=== PATIENT | male | born 1965 | race American Indian/Alaskan Native ===

== ENCOUNTER 2021-06-26 08:15 | Observation (INO) | payer OTHER ==
[2021-06-22 10:05] LABS: Hematocrit 42.5 % (35.5-45.6); Hemoglobin 14.7 gm/dl (11.8-15.2); Mean Corpuscular HGB Conc 35 % (32-34); Mean Corpuscular Volume 79 fl (84-94); Platelet Count 174 K/mm3 (140-440); Red Blood Count 5.37 M/mm3 (3.65-5.03); Red Cell Distribution Width 14.4 % (13.2-15.2)
[2021-06-22 10:10] LABS: Alanine Aminotransferase 28 units/L (7-56); Albumin 4.8 g/dL (3.9-5); BUN/Creatinine Ratio 13; Blood Urea Nitrogen 14 mg/dL (9-20); Hemolysis Index 3
[2021-06-26] MEDS ORDERED: LACTATED RINGERS 1,000 ML ONE ×2 (08:36→13:36)
[2021-06-26] MEDS: LACTATED RINGERS 1,000 ML IV SCH ×2 (09:15→20:38)
--- NOTE | 2021-06-26 09:30 | Anesthesia Day of Surgery ---
Anesthesia Day of Surgery - Day of Surgery Patient Examined: Yes Patient H&P Reviewed: Yes Patient is NPO: Yes
--- NOTE | 2021-06-26 09:33 | Anesthesia Consultation ---
Anesthesia Consult and Med Hx Date of service: 06/26/21 - Airway Anesthetic Teeth Evaluation: Chipped, Crowns ROM Head & Neck: Adequate Mental/Hyoid Distance: Adequate Mallampati Class: Class II Intubation Access Assessment: Good - Pre-Operative Health Status ASA Pre-Surgery Classification: ASA2 Proposed Anesthetic Plan: General Nerve Block: TAP - Pulmonary Hx Smoking: No Hx Respiratory Symptoms: No (+2FS) Hx Sleep Apnea: No (JONNATHAN PRE SCREEN HIGH RISK) - Cardiovascular System Hx Hypertension: Yes (X 10 YRS) Hx Heart Attack/AMI: No (Pt reports negative ETT on [id number]) - Central Nervous System Hx Psychiatric Problems: No - Gastrointestinal Hx Gastroesophageal Reflux Disease: No - Endocrine Hx Non-Insulin Dependent Diabetes: Yes (Borderline) - Hematic Hx Anemia: No Hx Sickle Cell Disease: No - Other Systems Hx Cancer: Yes (SKIN CA ON NOSE - REMOVED IN OFFICE) Hx Obesity: No
[2021-06-26] MEDS ORDERED: fentaNYL 100 MCG/2 ML INJ IV SCH (10:00)
[2021-06-26] MEDS ORDERED: MAGNESIUM OXIDE 400 MG TAB PO SCH (10:00)
[2021-06-26] MEDS ORDERED: CELECOXIB 200 MG CAP PO NR (10:00)
[2021-06-26] MEDS ORDERED: ceFAZolin/STERILE WATER 2 GM/20 ML SYRINGE IV NR (10:00)
[2021-06-26] MEDS ORDERED: ONDANSETRON 4 MG/2 ML INJ IV PRN ×2 (10:00→11:19)
[2021-06-26] MEDS ORDERED: MIDAZOLAM 2 MG/2 ML INJ IV NR (10:00)
[2021-06-26] MEDS ORDERED: ACETAMINOPHEN 500 MG TAB PO SCH (10:00)
[2021-06-26] MEDS ORDERED: HYDROmorphone 1 MG/1 ML INJ IV PRN ×2 (10:00)
[2021-06-26] MEDS ORDERED: BUPIVACAINE/PF (0.25%) 2.5 MG/ML 30 ML VIAL INFILTRATI ONE (10:37)
[2021-06-26] MEDS ORDERED: dexAMETHasone 4 MG/ML VIAL ONE (10:37)
[2021-06-26] MEDS ORDERED: ACETAMINOPHEN 325 MG TAB PO PRN (11:19)
[2021-06-26] MEDS ORDERED: NALOXONE 0.4 MG/1 ML INJ IV PRN (11:19)
[2021-06-26] MEDS ORDERED: MORPHINE 4 MG/1 ML INJ IV PRN (11:19)
[2021-06-26] MEDS ORDERED: diphenhydrAMINE 25 MG CAP PO PRN (11:19)
--- NOTE | 2021-06-26 11:19 | Short Stay Summary ---
Short Stay Documentation Date of service: 06/26/21 - History H&P: obtained from office - Allergies and Medications Current Medications: Allergies No Known Allergies Allergy (Verified 06/15/21 10:20) Home Medications Medication Instructions Recorded Confirmed Last Taken Type Lisinopril/Hydrochlorothiazide 1 each PO DAILY 06/15/21 06/15/21 Unknown History [Zestoretic 10-12.5 mg Tablet] Active Medications Acetaminophen (Acetaminophen 500 Mg Tab) 1,000 mg PO PREOP JOIE Stop: 06/26/21 20:00 Cefazolin Sodium (Cefazolin/Sterile Water 2 Gm/20 Ml Syringe) 2 gm IV PREOP NR Stop: 06/26/21 20:00 Celecoxib (Celecoxib 200 Mg Cap) 400 mg PO PREOP NR Stop: 06/26/21 20:00 Fentanyl (Fentanyl 100 Mcg/2 Ml Inj) 100 mcg IV PREOP JOIE Stop: 06/26/21 20:00 Hydromorphone HCl (Hydromorphone 1 Mg/1 Ml Inj) 0.25 mg IV Q10MIN PRN PRN Reason: Pain, Moderate (4-6) Stop: 06/26/21 17:00 Hydromorphone HCl (Hydromorphone 1 Mg/1 Ml Inj) 0.5 mg IV Q10MIN PRN PRN Reason: Pain , Severe (7-10) Stop: 06/26/21 17:00 Lactated Ringer's (Lactated Ringers) 1,000 mls @ 125 mls/hr IV DIRECT JOIE Magnesium Oxide (Magnesium Oxide 400 Mg Tab) 400 mg PO ONCE@1000 JOIE Stop: 06/26/21 20:00 Methocarbamol (Methocarbamol 750 Mg Tab) 1,500 mg PO ONCE@1000 JOIE Stop: 06/26/21 20:00 Midazolam HCl (Midazolam 2 Mg/2 Ml Inj) 2 mg IV PREOP NR Stop: 06/26/21 23:59 Ondansetron HCl (Ondansetron 4 Mg/2 Ml Inj) 4 mg IV ONCE PRN PRN Reason: Nausea And Vomiting - Brief post op/procedure progress note Date of procedure: 06/26/21 Pre-op diagnosis: prostate cancer Post-op diagnosis: same Procedure: robotic prostatectomy Anesthesia: GETA Surgeon: TOMASZ KAUR Estimated blood loss: other (450cc) Pathology: list (prostate) Specimen disposition: to lab Condition: stable - Hospital course Hospital course: post op info on chart (pt has pain med & abx) CTAP - Disposition Condition at discharge: Stable Short Stay Discharge Plan Follow up with: [facility] [Primary Care Provider] - 7 Days
[2021-06-26] MEDS ORDERED: ZOLPIDEM 5 MG TAB PO PRN (11:29)
[2021-06-26] MEDS ORDERED: SODIUM CHLORIDE 0.9% 1000 ML 1,000 ML IV SCH (11:30)
[2021-06-26] MEDS ORDERED: CALCIUM CHLORIDE 1,000 MG/10 ML SYRINGE IV ONE ×2 (12:16→13:44)
[2021-06-26] MEDS ORDERED: THROMBIN (RECOMBINANT) 5,000 UNIT VIAL TP ONE ×2 (12:17→13:44)
[2021-06-26] MEDS ORDERED: LIDOCAINE MPF (2%) 20 MG/1 ML VIAL 5 ML ONE (12:24)
[2021-06-26] MEDS ORDERED: ONDANSETRON 4 MG/2 ML INJ ONE (12:24)
[2021-06-26] MEDS ORDERED: ROCURONIUM 50 MG/5 ML INJ IV ONE ×2 (12:24→14:08)
[2021-06-26] MEDS ORDERED: propofoL 200 MG/20 ML VIAL IV ONE (12:25)
[2021-06-26] MEDS ORDERED: HYDROmorphone 1 MG/1 ML INJ ONE (12:25)
[2021-06-26] MEDS ORDERED: fentaNYL 100 MCG/2 ML INJ ONE (12:25)
[2021-06-26] MEDS ORDERED: SODIUM CHLORIDE 0.9% IRRIG SOLN 2000 ML IR ONE (13:44)
[2021-06-26] MEDS ORDERED: WATER FOR IRRIG STERILE 1,500 ML BOTTLE IR ONE (13:44)
[2021-06-26] MEDS ORDERED: ANTICOAGULANT SOD CITRATE SOLUTION MC ONE (13:44)
[2021-06-26] MEDS ORDERED: ePHEDrine SULFATE 50 MG/1 ML INJ ONE (14:02)
[2021-06-26] MEDS ORDERED: METHYLENE BLUE 50 MG/10 ML AMP ONE (14:33)
[2021-06-26] MEDS ORDERED: METHYLENE BLUE 50 MG/10 ML AMP IV ONE (14:36)
[2021-06-26] MEDS ORDERED: SODIUM CHLORIDE 0.9% 100 ML ONE (15:02)
[2021-06-26] MEDS ORDERED: NEOSTIGMINE 10MG/10 ML INJ MDV ONE (16:02)
[2021-06-26] MEDS ORDERED: GLYCOPYRROLATE 0.4 MG/2 ML INJ ONE (16:02)
--- NOTE | 2021-06-26 18:26 | Consultation ---
History of Present Illness - Reason for Consult Consult date: 06/26/21 Medical management Requesting physician: TOMASZ KAUR - History of Present Illness S/p robotic prostatectomy other Postop patient doing well Past History Past Medical History: diabetes (Borderline), hypertension Past Surgical History: Other (Robotic prostatectomy) Social history: lives with family, full code Family history: hypertension Medications and Allergies Allergies Allergy/AdvReac Type Severity Reaction Status Date / Time No Known Allergies Allergy Verified 06/15/21 10:20 Home Medications Medication Instructions Recorded Confirmed Last Taken Type Lisinopril/Hydrochlorothiazide 1 each PO DAILY 06/15/21 06/15/21 Unknown History [Zestoretic 10-12.5 mg Tablet] Active Meds: Active Medications Acetaminophen (Acetaminophen 500 Mg Tab) 1,000 mg PO PREOP JOIE Stop: 06/26/21 20:00 Last Admin: 06/26/21 10:00 Dose: 1,000 mg Acetaminophen (Acetaminophen 325 Mg Tab) 650 mg PO Q4H PRN PRN Reason: Pain, Mild (1-3)/Fever > 100.5 Hydrocodone Bitart/Acetaminophen (Hydrocodone/Acetaminophen 5-325 Mg Tab) 2 each PO Q4H PRN PRN Reason: Pain, Moderate (4-6) Cefazolin Sodium (Cefazolin/Sterile Water 2 Gm/20 Ml Syringe) 2 gm IV PREOP NR Stop: 06/26/21 20:00 Celecoxib (Celecoxib 200 Mg Cap) 400 mg PO PREOP NR Stop: 06/26/21 20:00 Last Admin: 06/26/21 10:00 Dose: 400 mg Diphenhydramine HCl (Diphenhydramine 25 Mg Cap) 25 mg PO Q6H PRN PRN Reason: Itching Fentanyl (Fentanyl 100 Mcg/2 Ml Inj) 100 mcg IV PREOP JOIE Stop: 06/26/21 20:00 Last Admin: 06/26/21 10:42 Dose: 100 mcg Hydrochlorothiazide (Hydrochlorothiazide 12.5 Mg Cap) 12.5 mg PO QDAY JOIE Lactated Ringer's (Lactated Ringers) 1,000 mls @ 125 mls/hr IV DIRECT JOIE Last Admin: 06/26/21 09:15 Dose: 125 mls/hr Sodium Chloride (Nacl 0.9% 1000 Ml) 1,000 mls @ 125 mls/hr IV DIRECT JOIE Cefazolin Sodium (Ancef/Ns 1 Gm/50 Ml) 1 gm in 50 mls @ 100 mls/hr IV Q8H [facility]; Protocol Stop: 06/27/21 02:29 Lisinopril (Lisinopril 10 Mg Tab) 10 mg PO QDAY [facility] Magnesium Oxide (Magnesium Oxide 400 Mg Tab) 400 mg PO ONCE@1000 JOIE Stop: 06/26/21 20:00 Methocarbamol (Methocarbamol 750 Mg Tab) 1,500 mg PO ONCE@1000 JOIE Stop: 06/26/21 20:00 Last Admin: 06/26/21 10:00 Dose: 1,500 mg Midazolam HCl (Midazolam 2 Mg/2 Ml Inj) 2 mg IV PREOP NR Stop: 06/26/21 23:59 Last Admin: 06/26/21 10:42 Dose: 2 mg Morphine Sulfate (Morphine 4 Mg/1 Ml Inj) 4 mg IV Q4H PRN PRN Reason: Pain , Severe (7-10) Naloxone HCl (Naloxone 0.4 Mg/1 Ml Inj) 0.1 mg IV Q2MIN PRN PRN Reason: Res Rate </= 8 or 02 SAT < 92% Ondansetron HCl (Ondansetron 4 Mg/2 Ml Inj) 4 mg IV ONCE PRN PRN Reason: Nausea And Vomiting Ondansetron HCl (Ondansetron 4 Mg/2 Ml Inj) 4 mg IV Q8H PRN PRN Reason: Nausea And Vomiting Zolpidem Tartrate (Zolpidem 5 Mg Tab) 5 mg PO QHS PRN PRN Reason: Sleep Review of Systems All systems: negative Exam - Constitutional Vitals: Temp Pulse Resp BP Pulse Ox 98.6 F 68 16 108/75 98 06/26/21 08:35 06/26/21 11:05 06/26/21 11:42 06/26/21 11:05 06/26/21 11:05 General appearance: Present: no acute distress, well-nourished - EENT Eyes: Present: PERRL ENT: hearing intact, clear oral mucosa - Neck Neck: Present: supple, normal ROM - Respiratory Respiratory effort: normal Respiratory: bilateral: CTA - Cardiovascular Heart rate: 78 Rhythm: regular Heart Sounds: Present: S1 & S2. Absent: rub, click - Extremities Extremities: pulses symmetrical, No edema Peripheral Pulses: within normal limits - Abdominal General gastrointestinal: Present: soft, non-tender, non-distended, normal bowel sounds Male genitourinary: Present: normal - Integumentary Integumentary: Present: clear, warm, dry - Musculoskeletal Musculoskeletal: gait normal, strength equal bilaterally - Psychiatric Psychiatric: appropriate mood/affect, intact judgment & insight - Neurologic Neurologic: CNII-XII intact, moves all extremities - Allied Health Allied health notes reviewed: nursing, case management Results - Labs CBC & Chem 7: 06/22/21 09:35 06/22/21 09:35 Labs: Abnormal lab results 06/26/21 Range/Units 16:45 POC Glucose 149 H (70-105) mg/dL Assessment and Plan - Patient Problems (1) Status post prostatectomy Current Visit: Yes Status: Acute Plan to address problem: Patient had robotic prostatectomy for Prostate cancer. Patient doing well postop (2) Hypertension Current Visit: Yes Status: Chronic Qualifiers: Hypertension type: primary hypertension Qualified Code(s): I10 - Essential (primary) hypertension Plan to address problem: Continue lisinopril/hydrochlorothiazide Adjust medications as necessary (3) T2DM (type 2 diabetes mellitus) Current Visit: Yes Status: Chronic Qualifiers: Diabetes mellitus mcfp insulin use: without mcfp use Plan to address problem: Borderline diabetes Accu-Cheks and coverage (4) DVT prophylaxis Current Visit: Yes Status: Acute Plan to address problem: On SCDs and GI prophylaxis (5) Advance care planning Current Visit: Yes Status: Acute Plan to address problem: Trial patient currently care plan discussed, diagnosis discussed, patient is full code. Patient acknowledges understanding and agreement with care plan. +30 minutes.
--- NOTE | 2021-06-26 19:14 | Post Anesthesia Evaluation ---
- Post Anesthesia Evaluation Patient Participated: Yes Airway Patent: Yes Stable Respiratory Function: Yes Nausea/Vomiting: No Temp > 96.8F: Yes Pain Manageable: Yes Adequeate Hydration: Yes Anesthesia Complications: No Block Receding Appropriately: Yes Patient on Ventilator: No
[2021-06-26] MEDS: ceFAZolin/NS 1 GM/50 ML 1 GM/50 ML BAG IV SCH (19:17)
--- NOTE | 2021-06-26 20:22 | Operative Report ---
DATE OF SURGERY: 06/26/2021 PREOPERATIVE DIAGNOSIS: Prostate cancer, [place] 6. POSTOPERATIVE DIAGNOSIS: Prostate cancer, [place] 6. PROCEDURES: Robotic-assisted laparoscopic prostatectomy, bladder neck suspension, stem cell placement. SURGEON: Esvin Burnett MD ANESTHESIA: General. RECRUITING MANAGER: Selena Hoff. ESTIMATED BLOOD LOSS: 600 mL FLUIDS: Crystalloid, Cell Saver 200 mL COMPLICATIONS: No complications. DRAINS: Jeffery-Soto drain x 1. INDICATIONS: This patient is a 56-year-old gentleman initially was diagnosed with prostate cancer in [facility]. In 2014, he has been followed conservatively; however, his PSA began to increase. We felt it was prudent to proceed with surgical intervention. Risks, benefits and complications were explained. DESCRIPTION OF PROCEDURE: The patient was taken to the operative suite, placed in a supine position. After adequate general anesthesia, he was prepped and draped in a sterile fashion. Delcid catheter was placed on the operative field. A 1-cm supraumbilical incision was made, drop test was negative. Veress needle was inserted with the drop test negative and opening abdominal pressure was 2 mL of water. Insufflation to 15 mL of water was performed without difficulty. A 15 cm cephalad to pubic symphysis was marked in the midline, 9 cm lateral and additional 9 cm lateral was marked. 0-degree lens was placed in the supraumbilical incision under direct vision as well as the 8 mm ports on the left, 8 mm port on the right, 10 mm port and then a 5 mm port on the right as well. The patient was placed in exaggerated Trendelenburg position. Second arch was scored, dissection was posteriorly to identify the prostate. There was lots of small vessels that had to be controlled with the Bovie. I was able to identify the seminal vesicles and vas deferens, vas deferens was transected. Dissection then was taken to the posterior of the prostate to the apex. Then, attention was taken anteriorly, laterally. Lateral umbilical ligament was scored and then the bladder flap was dropped. The pubic rami could be appreciated bilaterally, the endopelvic fascia was opened bilaterally. The dorsal vein complex was controlled with a 60 mm vascular stapler. Anterior bladder neck was transected exposing the Delcid, which was deflated and pulled and used for anterior traction. Posterior bladder neck was transected. The bladder neck could be appreciated. No median lobe was noted. The patient had some tedious bleeding throughout the procedure, vascular pedicles were controlled with 60 mm vascular stapler that allowed some better control of this tedious bleeding. Copious irrigation was performed. Adequate hemostasis was achieved. Attention was taken to dissecting the rest of the lateral pedicles to the apex of the prostate. Prostate was dissected, placed in the EndoCatch bag without difficulty. He had a fair amount of adipose tissue as well. Stem cells were placed in the area of the neurovascular bundle. A 2 x 2's graft bilaterally. Bladder neck was identified, the bladder neck reconstruction was performed with 2-0 Vicryl in interrupted fashion at the 5 o'clock and 7 o'clock positions. Double-armed V-Loc stitch was placed at the bladder neck, the 6 o'clock position corresponding aspect of the urethra and a running stitch was placed. A new Delcid was placed in the urethra and bladder, bladder neck stitch was cinched down, running V-Loc stitch was placed bilaterally and then used for bladder neck suspension putting a stitch into the back of the pubic rami bilaterally. [place] were removed, 2 x 4 piece of stem cells membrane was placed on the urethra. Platelet rich plasma as well as platelet poor plasma was injected in the urethra and around the pelvis and then platelet membrane was placed. Jeffery-Soto drain was brought out through the left-sided 8-mm port, secured with 2-0 silk in interrupted fashion. The patient was undocked. Supraumbilical incision was extended slightly to allow removal of the prostate. Rectus fascia was closed with 0 Vicryl in a [id number] fashion. Skin was closed with a 2-0 Monocryl in an interrupted fashion. Delcid catheter sideport was folded over and tied with 2-0 silk in interrupted fashion. The patient tolerated the procedure well and was extubated and taken to recovery room. He will be observed overnight go home on Bactrim and [place]. TID: [id number] RECEIPT: [id number] BRITT/HELEN
[2021-06-27] MEDS: ceFAZolin/NS 1 GM/50 ML 1 GM/50 ML BAG IV SCH (02:43)
[2021-06-27] MEDS ORDERED: ceFAZolin/NS 1 GM/50 ML 1 GM/50 ML BAG IV SCH (03:00)
[2021-06-27] MEDS: LACTATED RINGERS 1,000 ML IV SCH (06:03)
[2021-06-27 08:33] LABS: Hematocrit 30.7 % (35.5-45.6); Hemoglobin 10.6 gm/dl (11.8-15.2); Lymphocytes # (Auto) 0.5 K/mm3 (1.2-5.4); Mean Corpuscular HGB Conc 34 % (32-34); Mean Corpuscular Volume 80 fl (84-94); Monocytes # (Auto) 0.9 K/mm3 (0.0-0.8); Monocytes % (Auto) 8.1 % (0.0-7.3); Platelet Count 159 K/mm3 (140-440); Red Blood Count 3.84 M/mm3 (3.65-5.03)
--- NOTE | 2021-06-27 08:35 | Event Note ---
Date: 06/27/21 + abd pain katherin--- high out pt CTAP
[2021-06-27] MEDS: HYDROcodone/ACETAMINOPHEN 5-325 MG TAB PO PRN ×2 (09:45→15:15)
[2021-06-27] MEDS ORDERED: LISINOPRIL 10 MG TAB PO SCH (10:00)
[2021-06-27] MEDS ORDERED: hydroCHLOROthiazide 12.5 MG CAP PO SCH (10:00)
[2021-06-27] MEDS ORDERED: NON-FORMULARY EACH (Lisinopril/Hydrochlorothiazide [Zestoretic 10-12.5 Mg Tablet] 1 EACH T PO SCH (10:00)
--- NOTE | 2021-06-27 10:08 | Cat Scan Report ---
CT ABDOMEN AND PELVIS WITHOUT CONTRAST INDICATION / CLINICAL INFORMATION: post prostatectomy . TECHNIQUE: Axial CT images were obtained through the abdomen and pelvis without IV contrast. All CT scans at [facility] location are performed using CT dose reduction for ALARA by means of automated exposure control. COMPARISON: None available. FINDINGS: LOWER CHEST: There is mild dependent bilateral atelectasis. No other significant abnormality. LIVER: No significant abnormality. GALLBLADDER: No significant abnormality. BILE DUCTS: No significant abnormality. PANCREAS: No significant abnormality. SPLEEN: No significant abnormality. ADRENALS: No significant abnormality. RIGHT KIDNEY/URETER: No significant abnormality. LEFT KIDNEY/URETER: No significant abnormality. STOMACH/SMALL BOWEL: No significant abnormality. COLON: There is moderate gaseous distention of the transverse colon without other acute findings. APPENDIX: No significant abnormality. PERITONEUM: Expected free air is seen mainly along the pelvis and to a lesser extent along the abdome n given the patient's history of recent prostatectomy. There is expected fat stranding and scattered disorganized free fluid along the pelvis along with hyperdense fluid likely representing hematoma. Ce ntrally along the upper pelvis, a account service representative site of organized hematoma measures 6.8 x 4.0 cm on image 132 of series 2. No other suspicious organized fluid collection/abscess is seen. A surgical oliverio in terminates near the hepatic flexure. LYMPH NODES: No significant adenopathy. VASCULATURE: No acute findings. There is mild generalized atherosclerosis. URINARY BLADDER: Drained by a Delcid catheter. REPRODUCTIVE ORGANS: Status post prostatectomy. ADDITIONAL FINDINGS: None. BONES: No significant abnormality IMPRESSION: 1. Expected postoperative appearance of the abdomen and pelvis with probable postoperative hematoma a s above. No CT evidence of other acute postoperative complication. 2. Gaseous distension of the colon could represent an evolving ileus. Signer Name: Jackson Ibrahim MD Signed: 06/27/2021 10:04 AM Workstation Name: [id number]
[2021-06-27 10:37] VITALS: BP 104/58
--- NOTE | 2021-06-27 20:15 | Progress Note ---
Assessment and Plan Assessment and plan: --Status post prostatectomy Patient had robotic prostatectomy for Prostate cancer. Patient doing well postop -- Hypertension Continue lisinopril/hydrochlorothiazide Adjust medications as necessary -- T2DM (type 2 diabetes mellitus) Borderline diabetes Accu-Cheks and coverage -- DVT prophylaxis On SCDs and GI prophylaxis --Advance care planning Trial patient currently care plan discussed, diagnosis discussed, patient is full code. Patient acknowledges understanding and agreement with care plan. +30 minutes. Monitor the patient closely and adjust the management as needed Plan of care reviewed with the patient and the family at the bedside I also discussed with the patient's nurse and the case management Follow urology recommendations, disposition per urology History Interval history: I have seen and examined the patient at the bedside Patient's chart and medications reviewed Patient has no new complaints Vital signs noted Hospitalist Physical - Constitutional Vitals: Temp Pulse Resp BP Pulse Ox 98.2 F 86 18 104/58 96 06/27/21 04:29 06/27/21 04:29 06/27/21 04:29 06/27/21 04:29 06/27/21 10:00 General appearance: Present: no acute distress, well-nourished - EENT Eyes: Present: PERRL, EOM intact - Neck Neck: Present: supple, normal ROM - Respiratory Respiratory effort: normal Respiratory: bilateral: diminished, negative: rales, rhonchi, wheezing - Cardiovascular Rhythm: regular Heart Sounds: Present: S1 & S2 - Extremities Extremities: no ischemia, No edema - Abdominal General gastrointestinal: soft, non-tender, non-distended, normal bowel sounds - Integumentary Integumentary: Present: clear, warm - Psychiatric Psychiatric: appropriate mood/affect, cooperative - Neurologic Neurologic: moves all extremities Results - Labs CBC & Chem 7: 06/27/21 08:17 06/22/21 09:35 Labs: Laboratory Last Values WBC 11.0 K/mm3 (4.5-11.0) 06/27/21 08:17 RBC 3.84 M/mm3 (3.65-5.03) 06/27/21 08:17 Hgb 10.6 gm/dl (11.8-15.2) L 06/27/21 08:17 Hct 30.7 % (35.5-45.6) L 06/27/21 08:17 MCV 80 fl (84-94) L 06/27/21 08:17 MCH 28 pg (28-32) 06/27/21 08:17 MCHC 34 % (32-34) 06/27/21 08:17 RDW 15.0 % (13.2-15.2) 06/27/21 08:17 Plt Count 159 K/mm3 (140-440) 06/27/21 08:17 Lymph % (Auto) 5.0 % (13.4-35.0) L 06/27/21 08:17 Haakon % (Auto) 8.1 % (0.0-7.3) H 06/27/21 08:17 Eos % (Auto) 0.0 % (0.0-4.3) 06/27/21 08:17 Baso % (Auto) 0.0 % (0.0-1.8) 06/27/21 08:17 Lymph # (Auto) 0.5 K/mm3 (1.2-5.4) L 06/27/21 08:17 Haakon # (Auto) 0.9 K/mm3 (0.0-0.8) H 06/27/21 08:17 Eos # (Auto) 0.0 K/mm3 (0.0-0.4) 06/27/21 08:17 Baso # (Auto) 0.0 K/mm3 (0.0-0.1) 06/27/21 08:17 Seg Neutrophils % 86.9 % (40.0-70.0) H 06/27/21 08:17 Seg Neutrophils # 9.5 K/mm3 (1.8-7.7) H 06/27/21 08:17 Sodium 139 mmol/L (137-145) 06/22/21 09:35 Potassium 4.3 mmol/L (3.6-5.0) 06/22/21 09:35 Chloride 101.7 mmol/L (98-107) 06/22/21 09:35 Carbon Dioxide 28 mmol/L (22-30) 06/22/21 09:35 Anion Gap 14 mmol/L 06/22/21 09:35 BUN 14 mg/dL (9-20) 06/22/21 09:35 Creatinine 1.1 mg/dL (0.8-1.3) 06/22/21 09:35 Estimated GFR > 60 ml/min 06/22/21 09:35 BUN/Creatinine Ratio 13 % 06/22/21 09:35 Glucose 141 mg/dL (75-100) H 06/22/21 09:35 POC Glucose 142 mg/dL (70-105) H 06/27/21 11:20 Calcium 10.0 mg/dL (8.4-10.2) 06/22/21 09:35 Total Bilirubin 0.50 mg/dL (0.1-1.2) 06/22/21 09:35 AST 15 units/L (5-40) 06/22/21 09:35 ALT 28 units/L (7-56) 06/22/21 09:35 Alkaline Phosphatase 78 units/L (35-129) 06/22/21 09:35 Total Protein 7.4 g/dL (6.3-8.2) 06/22/21 09:35 Albumin 4.8 g/dL (3.9-5) 06/22/21 09:35 Albumin/Globulin Ratio 1.8 % 06/22/21 09:35 SARS-CoV-2 (PCR) Negative (Negative) 06/22/21 09:20 Blood Type B POSITIVE 06/26/21 09:00 Antibody Screen Negative 06/26/21 09:00 Delcid/IV: Voiding Method Indwelling Catheter
== END 2021-06-27 15:39 | disposition home or self-care (01) ==
LOC: OR 08:15 → 3A 11:19
PROVIDERS: ADMIT Urology; ATTEND Urology
DX: C61 Malignant neoplasm of prostate (principal); Z20.822 Contact with and (suspected) exposure to COVID-19; I10 Essential (primary) hypertension; E11.9 Type 2 diabetes mellitus without complications; Z79.899 Other long term (current) drug therapy
CPT/HCPCS: 36415; 55866; 64488; 74176; 80053; 82962; 85025; 85027; 86850; 86900; 86901; 88309; 96365; 96366; 96375; G0378; J0690; J1100; J1170; J1815; J2250; J2270; J2405; J2704; J2710; J3010; J3490; J7120; Q4140; Q9968; S2900; U0003; 64450

== ENCOUNTER 2021-06-28 13:24 | Emergency (ER) | payer OTHER ==
--- NOTE | 2021-06-28 14:00 | Emergency Department Report ---
ED General Adult HPI - General Chief complaint: Medical Clearance Stated complaint: BLEEDING FROM POST SURGERY Time Seen by Provider: 06/28/21 13:48 Source: patient, EMS Mode of arrival: Stretcher Limitations: No Limitations - History of Present Illness Initial comments: Patient is 56 years old male with history of prostatic cancer status post robotic prostatectomy yesterday by Dr. Burnett. Patient presented to the ER complaining of bleeding from one of the incision. Patient stated that the bleeding soft to small towels. He denied any fever or chills. His Delcid catheter producing a clear urine. Patient denied any other symptoms. - Related Data Home Medications Medication Instructions Recorded Confirmed Last Taken Lisinopril/Hydrochlorothiazide 1 each PO DAILY 06/15/21 06/15/21 Unknown [Zestoretic 10-12.5 mg Tablet] Allergies Allergy/AdvReac Type Severity Reaction Status Date / Time No Known Allergies Allergy Verified 06/28/21 13:42 ED Review of Systems ROS: Stated complaint: BLEEDING FROM POST SURGERY Other details as noted in HPI Comment: All other systems reviewed and negative Constitutional: denies: chills, fever Respiratory: denies: cough, shortness of breath, SOB with exertion Cardiovascular: denies: chest pain, palpitations Gastrointestinal: denies: abdominal pain, nausea, vomiting Musculoskeletal: denies: back pain Neurological: denies: headache, weakness ED Past Medical Hx - Past Medical History Hx Hypertension: Yes (X 10 YRS) Hx Heart Attack/AMI: No (Pt reports negative ETT on [id number]) Hx Diabetes: Yes (NO MEDS) Hx Sickle Cell Disease: No Hx Tuberculosis: Yes (1989 , TOOK [place] , NEGATIVE CXR) - Social History Smoking Status: Never Smoker - Medications Home Medications: Home Medications Medication Instructions Recorded Confirmed Last Taken Type Lisinopril/Hydrochlorothiazide 1 each PO DAILY 06/15/21 06/15/21 Unknown History [Zestoretic 10-12.5 mg Tablet] ED Physical Exam - General Limitations: No Limitations General appearance: alert, in no apparent distress - Head Head exam: Present: atraumatic, normocephalic, normal inspection - Eye Eye exam: Present: normal appearance - ENT ENT exam: Present: normal exam, normal orophraynx, mucous membranes moist - Neck Neck exam: Present: normal inspection, full ROM. Absent: tenderness, meningismus - Respiratory Respiratory exam: Present: normal lung sounds bilaterally - Cardiovascular Cardiovascular Exam: Present: regular rate, normal rhythm, normal heart sounds. Absent: bradycardia - GI/Abdominal GI/Abdominal exam: Present: soft, other (Wound dehiscence to the left lower quadrant surgical incision.). Absent: distended, tenderness, guarding, rebound, normal bowel sounds - Extremities Exam Extremities exam: Present: normal inspection, full ROM - Back Exam Back exam: Present: normal inspection, full ROM. Absent: CVA tenderness (R), CVA tenderness (L) - Neurological Exam Neurological exam: Present: alert, oriented X3, CN II-XII intact - Psychiatric Psychiatric exam: Present: normal mood - Skin Skin exam: Present: warm ED Course Vital Signs 06/28/21 06/28/21 06/28/21 13:35 14:25 15:30 Pulse Rate 106 H 96 H Respiratory 18 Rate Blood Pressure 148/102 140/86 [Left] O2 Sat by Pulse 96 99 100 Oximetry - Consultations Consultation #1: 06/28/21 14:47 I discussed the patient with Dr. Burnett, he advised to put stitches in patient to follow-up with him in the office in the next few days. - Laceration /Wound Repair Abdomen Wound Location: abdomen Wound Length (cm): 3 Wound's Depth, Shape: linear Wound Explored: clean Betadine Prep?: Yes Anesthesia: 1% Lidocaine Wound Debrided: minimal Wound Repaired With: sutures Suture Size/Type: 4:0 Sterile Dressing Applied?: Yes ED Medical Decision Making - Lab Data Result diagrams: 06/28/21 14:03 06/28/21 14:03 Critical care attestation.: If time is entered above; I have spent that time in minutes in the direct care of this critically ill patient, excluding procedure time. ED Disposition Clinical Impression: Status post prostatectomy, Wound dehiscence, surgical Disposition: 01 HOME / SELF CARE / HOMELESS Is pt being admited?: No Condition: Stable Instructions: Wound Dehiscence, Incision Care, Adult, [id number] Referrals: TOMASZ BURNETT MD [Staff Physician] - 3-5 Days
[2021-06-28 14:45] LABS: Hematocrit 33.2 % (35.5-45.6); Hemoglobin 11.2 gm/dl (11.8-15.2); Lymphocytes # (Auto) 0.6 K/mm3 (1.2-5.4); Lymphocytes % (Auto) 4.2 % (13.4-35.0); Mean Corpuscular HGB Conc 34 % (32-34); Mean Corpuscular Volume 80 fl (84-94); Monocytes % (Auto) 6.8 % (0.0-7.3); Platelet Count 183 K/mm3 (140-440); Red Blood Count 4.14 M/mm3 (3.65-5.03); Red Cell Distribution Width 15.3 % (13.2-15.2)
[2021-06-28 14:51] LABS: Calcium 9.2 mg/dL (8.4-10.2)
[2021-06-28] MEDS ORDERED: LIDOCAINE (2%) 20 MG/1 ML VIAL 20 ML MDV INFILTRATI ONE (15:10)
[2021-06-28 16:28] VITALS: BP 140/86
== END 2021-06-28 15:30 | disposition home or self-care (01) ==
LOC: ED 13:24
DX: T81.31XA Disruption of external operation (surgical) wound, not elsewhere classified, initial encounter (principal); N52.31 Erectile dysfunction following radical prostatectomy; I10 Essential (primary) hypertension
CPT/HCPCS: 12020; 36415; 80048; 85025; 99283; J3490